=== PATIENT | male | born 1970 | race Caucasian/White ===

== ENCOUNTER → 2017-04-27 | Outpatient (REF) | payer OTHER ==
[2017-04-27 18:49] LABS: BLOOD UREA NITROGEN 19 MG/DL (7-18); CREATININE FOR GFR 0.93 MG/DL (0.70-1.30); GLOMERULAR FILTRATION RATE > 60.0 (>60)
== END ==
LOC: M LABDRAW1 17:32
PROVIDERS: ATTEND Physical Medicine & Rehabilitation
DX: M54.5 Low back pain (principal)

== ENCOUNTER → 2017-08-08 | Outpatient (REF) | payer OTHER ==
[2017-08-08 12:40] LABS: CREATININE FOR GFR 0.91 MG/DL (0.70-1.30); GLOMERULAR FILTRATION RATE > 60.0 (>60)
[2017-08-08 12:40] LABS: BLOOD UREA NITROGEN 16 MG/DL (7-18)
== END ==
LOC: M LABDRAW1 10:41
DX: M50.30 Other cervical disc degeneration, unspecified cervical region (principal)

== ENCOUNTER → 2018-02-13 | Outpatient (REF) | payer OTHER ==
[2018-02-13 16:29] LABS: GLOMERULAR FILTRATION RATE > 60.0 (>60)
[2018-02-13 16:29] LABS: BLOOD UREA NITROGEN 15 MG/DL (7-18)
== END ==
LOC: M LABDRAW1 15:40
DX: M47.22 Other spondylosis with radiculopathy, cervical region (principal)

== ENCOUNTER → 2018-09-04 | Outpatient (REF) | payer OTHER | LOC: M SFHCPLAZ 17:32 | PROVIDERS: ATTEND Dermatology | DX: D76.3 Other histiocytosis syndromes (principal) ==

== ENCOUNTER → 2018-10-03 | Outpatient (REF) | payer OTHER ==
[2018-10-03 16:07] LABS: BLOOD UREA NITROGEN 15 MG/DL (7-18); CREATININE FOR GFR 0.86 MG/DL (0.70-1.30); GLOMERULAR FILTRATION RATE > 60.0 (>60)
== END ==
LOC: M LABDRAW1 13:09
PROVIDERS: ATTEND Physical Medicine & Rehabilitation
DX: M47.22 Other spondylosis with radiculopathy, cervical region (principal)

== ENCOUNTER 2020-03-18 10:44 | Emergency (ER) | payer OTHER ==
[~2020-03-18] VITALS: Ht 177.8 cm; Wt 103.4 kg
[2020-03-18] MEDS ORDERED: TIZA2TA (10:54)
[2020-03-18] MEDS ORDERED: AZEL0.055 (10:54)
[2020-03-18] MEDS ORDERED: NORT10CA2 (10:54)
[2020-03-18] MEDS ORDERED: IBUP-1022 PO (10:54)
[2020-03-18] MEDS ORDERED: ATOR1TAB21 PO (10:54)
[2020-03-18] MEDS ORDERED: BUPR300T92 PO (10:54)
[2020-03-18] MEDS ORDERED: BOOSTRIX/ADACEL VACCINE (DIPHTH/PERTUSS/ACELL/TETANUS) 0.5ML SYR IM ONE (11:15)
--- NOTE | 2020-03-18 11:24 | REP ---
INDICATION: injury 5th digit. COMPARISON: None TECHNIQUE: Four views FINDINGS: There is no visible or displaced fracture. Very minor degenerative changes at the PIP joint noted without erosion or avulsion. No abnormal soft tissue calcification. MCP joint and 5th metacarpal unremarkable. Some minor soft tissue swelling noted about the distal pad of the finger. No foreign body. IMPRESSION: 1. No visible fracture, avulsion, foreign body or other acute bony finding. Minor soft tissue swelling distal pad of the finger. <Electronically signed by Humphrey Abdi > 03/18/20 1314
[2020-03-18] MEDS ORDERED: KEFL500C17 PO (12:05)
[2020-03-18 12:15] VITALS: BP 141/106
== END 2020-03-18 12:15 | disposition home or self-care (01) ==
LOC: M ED 10:44
DX: S61.317A Laceration without foreign body of left little finger with damage to nail, initial encounter (principal); W23.0XXA Caught, crushed, jammed, or pinched between moving objects, initial encounter; Y92.098 Other place in other non-institutional residence as the place of occurrence of the external cause; I10 Essential (primary) hypertension; E78.5 Hyperlipidemia, unspecified; G43.909 Migraine, unspecified, not intractable, without status migrainosus; Z85.810 Personal history of malignant neoplasm of tongue; Z79.899 Other long term (current) drug therapy

== ENCOUNTER → 2020-05-30 | Outpatient (CLI) | payer OTHER ==
[~2020-05-30] MED LIST: ATOR1TAB21 PO; AZEL0.055; BUPR300T92 PO; IBUP-1022 PO; KEFL500C17 PO; NORT10CA2; TIZA2TA
[2020-05-30 11:37] LABS: BLOOD UREA NITROGEN 18 MG/DL (7-18); CREATININE FOR GFR 1.09 MG/DL (0.70-1.30); GLOMERULAR FILTRATION RATE > 60.0 (>60)
== END ==
LOC: M LAB 10:48
PROVIDERS: ATTEND Physician Assistant
DX: M22.2X2 Patellofemoral disorders, left knee (principal)

== ENCOUNTER → 2020-08-26 | Outpatient (CLI) | payer OTHER ==
--- NOTE | 2020-08-26 12:43 | REP ---
INDICATION: CHEST PAIN ON BREATHING COMPARISON: None. TECHNIQUE: Frontal view of the chest with four views of the left hemithorax. FINDINGS: Frontal view of the chest demonstrates no acute cardiopulmonary process, contusion, effusion, or pneumothorax. Multiple views of the left hemithorax demonstrates no acute rib fracture/injury or pathology. IMPRESSION: Normal rib series. <Electronically signed by Gerard Valenzuela > 08/26/20 [id number]
== END ==
LOC: M WUC 12:21
PROVIDERS: ATTEND Physician Assistant
DX: R07.1 Chest pain on breathing (principal)

== ENCOUNTER 2021-04-14 09:31 | Outpatient (CLI) | payer OTHER ==
[~2021-04-14] VITALS: Ht 177.8 cm; Wt 102.0 kg
[~2021-04-14 09:31] MED LIST changes: +ACETAMINOPHEN TAB 650MG DOSE (2X325MG) PO ONE; +ALBUTEROL 90 MCG/ACT 8GM HFA INHALER INH PRN; +ALBUTEROL SULFATE 2.5 MG/0.5 ML INH NEB SOLN INH PRN; +CASIRIVIMAB (REGN10933) 600 MG, IMDEVIMAB (REGN10987) 600 MG in NS 250 ML IV ONE; +EPINEPHrine INJ 1 MG/ML 1ML AMP IM PRN; +NS 1,000 ML IV SCH; +diphenhydrAMINE 50MG CAP PO ONE; +diphenhydrAMINE 50MG/ML VIAL (J1200) IV PRN; +methylPREDNISolone 125MG 2ML VIAL IV PRN
[2021-04-14 10:18] VITALS: BP 145/91
[2021-04-14 10:48] VITALS: BP 153/99
[2021-04-14 11:18] VITALS: BP 165/93
[2021-04-14 12:18] VITALS: BP 147/92
== END 2021-04-14 12:18 | disposition home or self-care (01) ==
LOC: M OPCLI4PR 09:31
PROVIDERS: ATTEND Nurse Practitioner Adult Health
DX: U07.1 COVID-19 (principal)

== ENCOUNTER → 2022-09-26 | Outpatient (CLI) | payer OTHER ==
[~2022-09-26] MED LIST changes: -ACETAMINOPHEN TAB 650MG DOSE (2X325MG) PO ONE; -ALBUTEROL 90 MCG/ACT 8GM HFA INHALER INH PRN; -ALBUTEROL SULFATE 2.5 MG/0.5 ML INH NEB SOLN INH PRN; -CASIRIVIMAB (REGN10933) 600 MG, IMDEVIMAB (REGN10987) 600 MG in NS 250 ML IV ONE; -EPINEPHrine INJ 1 MG/ML 1ML AMP IM PRN; -NS 1,000 ML IV SCH; -diphenhydrAMINE 50MG CAP PO ONE; -diphenhydrAMINE 50MG/ML VIAL (J1200) IV PRN; -methylPREDNISolone 125MG 2ML VIAL IV PRN
== END ==
LOC: M WUC 14:42
PROVIDERS: ATTEND Nurse Practitioner Family
DX: M25.572 Pain in left ankle and joints of left foot (principal)

== ENCOUNTER → 2023-01-27 | Outpatient (CLI) | payer MEDICARE, OTHER | LOC: M RAD 07:05 | PROVIDERS: ATTEND Internal Medicine Gastroenterology | DX: R11.0 Nausea (principal) ==

== ENCOUNTER 2023-04-21 17:13 | Emergency (ER) | payer MEDICARE, OTHER ==
[~2023-04-21] VITALS: Ht 177.8 cm; Wt 100.0 kg
[2023-04-21] MEDS ORDERED: OMEP-173 PO (17:27)
[2023-04-21] MEDS ORDERED: NORCO, ANEXSIA 5/325MG TABLET (HYDROcodone/ACETAMINOPHEN) PO ONE (19:30)
[2023-04-21] MEDS ORDERED: HYDR-3713 PO (20:46)
[2023-04-21 20:52] VITALS: BP 149/78; TEMP 98.3; O2SAT 98
== END 2023-04-21 20:53 | disposition home or self-care (01) ==
LOC: M ED 17:13
DX: S82.54XA Nondisplaced fracture of medial malleolus of right tibia, initial encounter for closed fracture (principal); W11.XXXA Fall on and from ladder, initial encounter; Y92.009 Unspecified place in unspecified non-institutional (private) residence as the place of occurrence of the external cause; I10 Essential (primary) hypertension; Z85.810 Personal history of malignant neoplasm of tongue; Z79.899 Other long term (current) drug therapy

== ENCOUNTER 2023-07-03 08:25 | Day surgery (SDC) | payer MEDICARE, OTHER ==
[~2023-07-03] VITALS: Ht 177.8 cm; Wt 103.5 kg
[~2023-07-03 08:25] MED LIST changes: +HYDR-3713 PO; +LIDOCAINE 2% 100MG/5ML SDV (FOR ANES.) As Ordered ONE; +OMEP-173 PO; +fentaNYL 100 MCG/2 ML INJECTION As Ordered ONE; +propofoL 500 MG/50 ML VIAL As Ordered ONE
[2023-07-03] MEDS: NS 1,000 ML IV ONE (08:43)
[2023-07-03 09:51] VITALS: TEMP 97.4
[2023-07-03 10:07] VITALS: BP 130/77; O2SAT 96
== END 2023-07-03 10:20 | disposition home or self-care (01) ==
LOC: M OPP 08:25
PROVIDERS: ATTEND Internal Medicine Gastroenterology
DX: Z12.11 Encounter for screening for malignant neoplasm of colon (principal); K64.0 First degree hemorrhoids; K57.30 Diverticulosis of large intestine without perforation or abscess without bleeding; K22.89 Other specified disease of esophagus; R12 Heartburn; F17.200 Nicotine dependence, unspecified, uncomplicated; Z79.02 Long term (current) use of antithrombotics/antiplatelets; Z79.1 Long term (current) use of non-steroidal anti-inflammatories (NSAID); Z79.52 Long term (current) use of systemic steroids; Z79.899 Other long term (current) drug therapy
CPT/HCPCS: 43239; 88305; G0121; J3010

== ENCOUNTER → 2024-03-04 | Outpatient (CLI) | payer MEDICARE, OTHER ==
[~2024-03-04] MED LIST changes: -AZEL0.055; +AZEL1SPR4; +BUPR-597 PO; -BUPR300T92 PO; -LIDOCAINE 2% 100MG/5ML SDV (FOR ANES.) As Ordered ONE; -fentaNYL 100 MCG/2 ML INJECTION As Ordered ONE; -propofoL 500 MG/50 ML VIAL As Ordered ONE
[2024-03-04 20:02] LABS: C REACTIVE PROTEIN QUANTITATIV < 0.40 MG/DL (<1.0)
[2024-03-04 20:04] LABS: RHEUMATOID FACTOR QUANT < 3.5 IU/ML (<14)
[2024-03-06 11:58] LABS: RNP ANTIBODY <1.0 NEG AI (<1.0 NEG); SM ANTIBODY <1.0 NEG AI (<1.0 NEG); SSA SJOGRENS A <1.0 NEG AI (<1.0 NEG); SSB SJOGRENS B <1.0 NEG AI (<1.0 NEG)
[2024-03-06 14:12] LABS: ANA SCREEN, IFA NEGATIVE (NEGATIVE)
[2024-03-09 04:07] LABS: BORRELIA SPECIES DNA NOT DETECTED (NOT DETECT)
[2024-03-09 05:07] LABS: Anaplasma phagocytophilum NOT DETECTED (NOT DETECT); Babesia microti NOT DETECTED (NOT DETECT); Ehrlichia chaffeensis NOT DETECTED (NOT DETECT)
[2024-03-15 18:27] LABS: ANTI DS-DNA AB NEGATIVE (NEGATIVE)
== END ==
LOC: M WUC 12:45
PROVIDERS: ATTEND Nurse Practitioner Adult Health
DX: M25.50 Pain in unspecified joint (principal)

== ENCOUNTER → 2024-09-09 | Outpatient (CLI) | payer MEDICARE, OTHER ==
[~2024-09-09] MED LIST changes: -BUPR-597 PO; +BUPR-766 PO
== END ==
LOC: M RAD 06:43
PROVIDERS: ATTEND Nurse Practitioner Adult Health
DX: F17.211 Nicotine dependence, cigarettes, in remission (principal)